=== PATIENT | male | born 1960 | race Caucasian/White ===

== ENCOUNTER 2017-09-01 09:09 | Emergency (ER) | payer BC ==
[~2017-09-01 09:09] MED LIST: ASPI325T PO; ATOR10 PO; HYDR-3533 PO; OMEP20TA39 PO
[2017-09-01 09:19] VITALS: BP 140/66; PULSE 83; RESP 20; TEMP 98.2; O2SAT 99
[2017-09-01] MEDS ORDERED: LIPI10TA PO (09:23)
[2017-09-01] MEDS ORDERED: OMEP20TA93 PO (09:23)
[2017-09-01] MEDS ORDERED: COZA25TA PO (09:23)
[2017-09-01] MEDS ORDERED: ASPI-183 PO (09:23)
--- NOTE | 2017-09-01 09:51 | PD ---
HPI Chief Complaint: Back/ Neck Pain or Injury Time Seen by Provider: 09:32 Travel History International Travel<30 days: No Contact w/Intl Traveler<30days: No Traveled to known affect area: No History of Present Illness HPI 56 old male here with left low back pain and hip pain 1 week. 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 He was stumbling the area using a sledgehammer in a swinging motion. He developed left low back pain shortly after which has intensified now has pain radiating down into the left leg. Last night he reports severe pain in his left hip prompting his visit today. He reports pain with flexion and external rotation of the hip as well as weightbearing. Pain severity 8/10. Slightly relieved with rest. He denies fever, chills, chest pain, shortness breath, abdominal pain, testicular pain, dysuria/hematuria, incontinence, saddle anesthesia, paresthesia or weakness of the extremity. PFSH Past Medical History Cancer: No Cardiac Catheterization: Yes Cardiovascular Problems: Yes (STENT) High Cholesterol: Yes Coronary Artery Disease: Yes Diabetes: No GERD: Yes Glaucoma: No Hepatitis: No Hiatal Hernia: No Hypertension: No Respiratory: No Myocardial Infarction: No Thyroid Disease: No Past Surgical History Abdominal Surgery: No Cardiac Surgery: Yes (STENT PLACEMENT X1) Coronary Stent: Yes (x1 2006) Ear Surgery: No Endocrine Surgery: No Eye Surgery: No Genitourinary Surgery: No Gynecologic Surgery: No Oral Surgery: No Pacemaker: No Thoracic Surgery: No Other Surgery: Yes (left breast cyst removed ) Social History Alcohol Use: Yes (DAILY) Tobacco Use: Yes (3-4 CIGARS A DAY) Substance Use: No Allergies-Medications (Allergen,Severity, Reaction): Coded Allergies: No Known Allergies (Verified Adverse Reaction, Unknown, 09/01/17) Reported Meds & Prescriptions Reported Meds & Active Scripts Active Reported Aspirin 325 Mg Tab 325 Mg PO DAILY Cozaar (Losartan Potassium) 25 Mg Tab Unknown Dose PO DAILY Omeprazole 20 Mg Tab 20 Mg PO DAILY Lipitor (Atorvastatin Calcium) 10 Mg Tab 10 Mg PO HS Review of Systems Except as stated in HPI: all other systems reviewed are Neg General / Constitutional: No: Fever Physical Exam Narrative GENERAL: Alert male lying on the stretcher. No distress. Patient grimaces when moved SKIN: Warm and dry. HEAD: Normocephalic. EYES: No scleral icterus. No injection or drainage. NECK: Supple, trachea midline. No JVD or lymphadenopathy. CARDIOVASCULAR: Regular rate and rhythm without murmurs, gallops, or rubs. RESPIRATORY: Breath sounds equal bilaterally. No accessory muscle use. GASTROINTESTINAL: Abdomen soft, non-tender, nondistended. MUSCULOSKELETAL: No cyanosis, or edema. Attention to the left lower extremity: Left hip is nontender. No deformity. Patient has pain with flexion and external rotation of the hip. Color, sensation, strength within normal limits. 2+ distal pulses. Wrist Refill BACK: Tenderness to the left low lumbar paraspinous musculature. Without obvious deformity. No CVA tenderness. Data Data Last Documented VS Vital Signs Date Time Temp Pulse Resp B/P (MAP) Pulse Ox O2 Delivery O2 Flow Rate FiO2 09/01/17 09:19 98.2 83 20 140/66 (90) 99 Orders Orders Hip, Uni(Ap&Lat) W Ap Pelvis (09/01/17 ) Ketorolac Inj (Toradol Inj) (09/01/17 10:30) Orphenadrine Inj (Norflex Inj) (09/01/17 10:30) MDM Medical Decision Making Medical Screen Exam Complete: Yes Emergency Medical Condition: Yes Differential Diagnosis Sciatica, lumbar strain, inguinal strain, hip fracture Narrative Course 56-year-old male with left low back pain radiating down into the leg. He denies trauma or fall. He reports he was demoing a porch last week prior to the symptoms starting. Patient has a normal neurologic exam. Patient has tenderness to the left lumbar paraspinous musculature and over the left SI joint. No CVA tenderness or abdominal pain. She was given an injection of Toradol and Norflex. He reports symptom improvement on recheck. Patient will be discharged home on NSAIDs and muscle relaxers. Instructed to follow-up with his primary doctor or return if he develops new or worsening symptoms. Diagnosis Primary Impression: Sciatica Qualified Codes: M54.32 - Sciatica, left side Referrals: Primary Care Physician Additional Instructions: Take the medication as prescribed. Use ice and/or heat for comfort. Avoid heavy lifting or strenuous activity. Follow-up with her primary doctor. Return if he developed new or worsening symptoms. Scripts Methocarbamol (Robaxin) 750 Mg Tab 750 MG PO TID for Muscle Spasm, #15 TAB 0 Refills Prov: Shirley Sykes 09/01/17 Ibuprofen (Ibuprofen) 800 Mg Tab 800 MG PO Q6HR Y for PAIN, #40 TAB 0 Refills Prov: Shirley Sykes 09/01/17 Disposition: 01 DISCHARGE HOME Condition: Stable Shirley Sykes Sep 01, 2017 09:51
[2017-09-01] MEDS ORDERED: ORPHENADRINE INJ 60 MG/2 ML AMP IM ONE (10:30)
[2017-09-01] MEDS ORDERED: KETOROLAC TROMETHAMINE 60 MG/2 ML (IM) VIAL IM ONE (10:30)
--- NOTE | 2017-09-01 10:43 | RADRPT ---
EXAM DATE/TIME: 09/01/2017 10:23 [facility] COMPARISON: No previous studies available for comparison. INDICATIONS : Onset of severe left hip area pain, no known injury MEDICAL HISTORY : None. SURGICAL HISTORY : cardiac stent ENCOUNTER: Initial ACUITY: 1 day PAIN SCORE: 10/10 LOCATION: Left hip FINDINGS: Examination of the left hip was performed with AP Pelvis. The primary and secondary trabecular patte rn of the femoral neck is intact. Moderate degenerative changes of each hip greater than the right. N o fracture. CONCLUSION: Osteoarthritis of each hip. No fracture. Emigdio Young MD on September 01, 2017 at 10:40 Board Certified Radiologist. This report was verified electronically.
[2017-09-01] MEDS ORDERED: IBUP1TAB7 PO (11:06)
[2017-09-01] MEDS ORDERED: ROBA750T PO (11:06)
== END 2017-09-01 11:16 | disposition home or self-care (01) ==
LOC: PHEFT 09:09
DX: M54.42 Lumbago with sciatica, left side (principal)
CPT/HCPCS: 73502; 96372; 99284; J1885; J2360